=== PATIENT | male | born 1960 | race Caucasian/White ===

== ENCOUNTER 2024-04-30 14:20 | Outpatient (CLI) | payer OTHER, SELFPAY ==
--- NOTE | ~2024-04-30 | MR_ITS ---
EXAMINATION: MR brain/brain stem wo con DATE: 04/30/2024 15:00 INDICATION: Headache TECHNIQUE: Magnetic resonance imaging (MRI) of the brain and brainstem was performed without intraven ous contrast. Sequences included sagittal and axial T1-weighted SE, axial diffusion-weighted FS SE, a xial T2*-weighted GRE, axial T2-weighted FLAIR, and axial T2-weighted FSE. Apparent diffusion coeffic ient (ADC) maps were created. COMPARISON: None. FINDINGS: Small old lacunar infarct at the right thalamus. There are no areas of restricted diffusion to sugges t acute infarction. No abnormal intracranial mass lesion. Tiny focus of susceptibility artifact in th e anterior left frontal lobe white matter consistent with sequela blood products and chronic microhem orrhage. There are scattered areas of nonspecific increased T2-weighted signal intensity in the cereb ral white matter, predominantly involving the deep and periventricular white matter. There are no int raparenchymal signal abnormalities seen on the other pulse sequences. The ventricles are symmetric an d normal in size. There are no abnormal extra-axial fluid collections. Flow voids are seen in the cer ebral arteries on the T2-weighted sequences consistent with their expected patency. Moderate mucosal thickening the right maxillary and couple bilateral posterior ethmoid air cells with additional mild mucosal thickening throughout the remainder of the paranasal sinuses. This appears similar to CT stud ies from 04/10/2008. Visualized orbits and soft tissues are unremarkable. IMPRESSION: 1. Small old lacunar infarct at the right thalamus. No acute intracranial process. 2. Moderate scattered periventricular predominant nonspecific white matter T2 hyperintensity likely s equela of chronic small vessel ischemic disease. 3. Single tiny focus of susceptibility artifact in the anterior left frontal lobe consistent with old blood products related to chronic microhemorrhage. 4. Chronic sinus disease. Reviewed, dictated and finalized at location B. OPERATOR IMPRESSION: 1. Small old lacunar infarct at the right thalamus. No acute intracranial proce ss. 2. Moderate scattered periventricular predominant nonspecific white matter T2 h yperintensity likely sequela of chronic small vessel ischemic disease. 3. Single tiny focus of susceptibility artifact in the anterior left frontal lo be consistent with old blood products related to chronic microhemorrhage. 4. Chronic sinus disease.
== END 2024-04-30 14:21 | disposition home or self-care (01) ==
LOC: MICIMG 14:21
PROVIDERS: PCP Internal Medicine; Visit Provider Internal Medicine
DX: R90.82 White matter disease, unspecified (principal); J32.9 Chronic sinusitis, unspecified; I25.2 Old myocardial infarction
CPT/HCPCS: 70551